=== PATIENT | female | born 1960 ===

== ENCOUNTER 2021-11-17 16:09 | Emergency (ER) | payer SELFPAY ==
[~2021-11-17] VITALS: Ht 167.6 cm; Wt 57.1 kg
[2021-11-17] MEDS ORDERED: EUTHYROX88 MCG PO (16:52)
[2021-11-17 17:01] LABS: BASOPHILS ABSOLUTE AUTO 0.02 K/mm3 (0.00-0.23); BASOPHILS PERCENT AUTO 0 % (0-2); EOSINOPHILS ABSOLUTE AUTO 0.02 K/mm3 (0.00-0.68); EOSINOPHILS PERCENT AUTO 0 % (0-6); Hematocrit 38.8 % (33.0-51.0); IMMATURE GRAN ABSOLUTE AUTO 0.01 K/mm3 (0.00-0.10); IMMATURE GRAN PERCENT AUTO 0 % (0-1); LYMPHOCYTES PERCENT AUTO 30 % (21-46); MONOCYTES ABSOLUTE AUTO 0.36 K/mm3 (0.16-1.47); MONOCYTES PERCENT AUTO 5 % (4-13); Mean Corpuscular HGB 35.3 pg (26.0-34.0); Mean Corpuscular HGB Conc 33.5 g/dL (31.5-36.5); Mean Corpuscular Volume 105 fL (80-100); Mean Platelet Volume 10.2 fL (9.1-12.4); NEUTROPHILS PERCENT AUTO 65 % (41-73); Platelet Count 265 K/mm3 (150-400); RDW Coefficient Variation 13.6 % (11.7-14.2); RDW Standard Deviation 53.6 fL (35.1-46.3); Red Blood Cell Count 3.68 M/mm3 (3.80-5.20); White Blood Cell Count 7.11 K/mm3 (4.00-11.30)
[2021-11-17 17:20] LABS: Alanine Aminotransfer (ALT/SGP 20 U/L (12-78); Albumin, Blood 3.6 g/dL (3.4-5.0); Albumin/Globulin Ratio 0.9 (0.8-1.8); Alk Phos 69 U/L (50-136); Anion Gap 5 mmol/L (6-16); Aspartate Aminotrans (AST/SGOT 20 U/L (12-37); Bilirubin, Total 0.3 mg/dL (0.1-1.0); Blood Urea Nitrogen 13 mg/dL (8-24); Bun/Creatinine Ratio 17.6 (12.0-20.0); CO2, Blood 25 mmol/L (21-32); Chloride, Blood 112 mmol/L (98-108); Creatinine, Blood 0.74 mg/dL (0.40-1.00); Glomerular Filtration Rate >60 (60-); Glucose, Blood 89 mg/dL (70-99); Potassium, Blood 3.7 mmol/L (3.5-5.5); Sodium, Blood 142 mmol/L (136-145); Total Protein, Blood 7.6 g/dL (6.4-8.2)
[2021-11-17] MEDS ORDERED: DICY20 PO (18:29)
[2021-11-17] MEDS ORDERED: ONDA4ODT MM (18:29)
== END 2021-11-17 19:14 | disposition home or self-care (01) ==
LOC: ER 16:09
PROVIDERS: Physician Assistant
DX: R10.32 Left lower quadrant pain (principal); Z88.8 Allergy status to other drugs, medicaments and biological substances; Z88.2 Allergy status to sulfonamides; Z88.0 Allergy status to penicillin; Z98.84 Bariatric surgery status
CPT/HCPCS: 74177; 80053; 83690; 85025; J1200; J3010; Q9967